=== PATIENT | male | born 1955 | race Caucasian/White ===

== ENCOUNTER → 2016-08-21 | Outpatient (CLI) | payer OTHER ==
[2016-08-21 12:51] LABS: URINE TOTAL PROTEIN 242 mg/dl
== END ==
LOC: LAB 11:20
PROVIDERS: Internal Medicine Nephrology
DX: N18.3 Chronic kidney disease, stage 3 (moderate) (principal); N25.81 Secondary hyperparathyroidism of renal origin
CPT/HCPCS: 36415; 80053; 83970; 84100; 84156

== ENCOUNTER → 2016-11-07 | Outpatient (CLI) | payer OTHER | LOC: LAB 12:50 | PROVIDERS: Internal Medicine Nephrology | DX: N18.3 Chronic kidney disease, stage 3 (moderate) (principal) | CPT/HCPCS: 36415; 80048; 82570; 84156 ==